=== PATIENT | male | born 1990 | race African-American/Black ===

== ENCOUNTER 2021-10-19 08:30 | Emergency (ER) | payer OTHER ==
[2021-10-19 08:33] VITALS: BP 134/78; PULSE 103; RESP 20; TEMP 97.8; BMI 36.1
[2021-10-19] MEDS ORDERED: IBUPROFEN 600 MG TABLET (FP) PO ONE (09:33)
== END 2021-10-19 10:30 | disposition home or self-care (01) ==
LOC: JER 08:30
DX: S83.91XA Sprain of unspecified site of right knee, initial encounter (principal); X50.9XXA Other and unspecified overexertion or strenuous movements or postures, initial encounter
CPT/HCPCS: 73564-TC-RT-FY; 99283-25

== ENCOUNTER 2023-10-07 09:49 | Emergency (ER) | payer OTHER ==
[2023-10-07 09:54] VITALS: BP 108/74; PULSE 60; RESP 18; TEMP 97.7; BMI 25.8
[2023-10-07] MEDS ORDERED: KETOROLAC TROMETHAMINE 30 MG/1 ML VIAL ONE (10:52)
[2023-10-07] MEDS: KETOROLAC TROMETHAMINE 30 MG/1 ML VIAL IM ONE (10:59)
== END 2023-10-07 11:38 | disposition home or self-care (01) ==
LOC: JERFT 09:49
PROC: 3E0133Z Introduction of Anti-inflammatory into Subcutaneous Tissue, Percutaneous Approach (ICD-10-PCS; principal; 2023-10-07)
DX: M54.50 Low back pain, unspecified (principal); X50.0XXA Overexertion from strenuous movement or load, initial encounter; Y99.0 Civilian activity done for income or pay
CPT/HCPCS: 99284-25